=== PATIENT | female | born 2000 | race Hispanic/Latino ===

== ENCOUNTER 2024-08-23 17:57 | Emergency (ER) | payer MEDICAID, SELFPAY ==
[~2024-08-23 17:57] MED LIST: Iopamidol-370 76% 500 ML MDV (1 ML CHARGE) ONE
[2024-08-23 18:19] LABS: #Basophils 0.14 10x3/uL (0.0-0.2); %Basophils 1.3 % (0.0-1.0); %Eosinophils 1.2 % (0.0-10.0); %Lymphocytes 28.4 % (21.0-51.0); %Monocytes 7.9 % (0.0-10.0); Hematocrit 41.7 % (36.0-47.0); Hemoglobin 14.1 g/dL (12.0-16.0); Mean Corpuscular HGB CONC 33.8 g/dL (32.0-36.0); Mean Corpuscular Hemoglobin 29.6 pg (27.0-31.0); Mean Corpuscular Volume 87.6 fL (78.0-98.0); Mean Platelet Volume 11.1 fL (7.4-10.4); Platelet Count 280 10x3/uL (130-400); Red Blood Cell (RBC) Count 4.76 mill/uL (4.20-5.40)
[2024-08-23 18:35] LABS: ALT (SGPT) 18 U/L (8-55); AST (SGOT) 19 U/L (5-34); Albumin 4.2 g/dL (3.5-5.0); Alkaline Phosphatase 64 U/L (40-110); Anion Gap 14 mmol/L (10-20); BUN (Urea Nitrogen) 10 mg/dL (7.0-18.7); Bilirubin, Total 0.4 mg/dL (0.2-1.2); Calc. Creatinine Clearance 0 mL/min (70-130); Calcium 10.1 mg/dL (7.8-10.44); Carbon Dioxide 24 mmol/L (22-29); Chloride 105 mmol/L (98-107); Estimated GFR 117; Globulin 3.6 g/dL (2.4-3.5); Glucose 90 mg/dL (70-105); Potassium 3.8 mmol/L (3.5-5.1); Protein, Total 7.8 g/dL (6.0-8.3); Sodium 139 mmol/L (136-145)
[2024-08-23 18:37] LABS: BHCG - Serum Negative (NEGATIVE); Pregs Control Background? CLEAR/WHITE (CLR/WHITE); Pregs Control Bar Appear? YES (CONTROL BAR)
== END 2024-08-23 21:00 | disposition home or self-care (01) ==
LOC: ERS 17:57
DX: J35.8 Other chronic diseases of tonsils and adenoids (principal); Z75.8 Other problems related to medical facilities and other health care
CPT/HCPCS: 36415; 70491; 80053; 84703; 85025; Q9967